=== PATIENT | female | born 1950 ===

== ENCOUNTER 2017-12-10 16:00 | Outpatient (RCR) | payer OTHER | END 2017-12-15 | disposition home or self-care (01) | LOC: PTY 16:00 | DX: M25.511 Pain in right shoulder (principal) ==

== ENCOUNTER 2017-12-25 13:35 | Outpatient (RCR) | payer OTHER | END 2018-01-14 | disposition home or self-care (01) | LOC: PTY 13:35 | DX: M25.511 Pain in right shoulder (principal) ==